=== PATIENT | female | born 1935 | race Caucasian/White ===

== ENCOUNTER → 2017-02-25 | Outpatient (CLI) | payer OTHER ==
[~2017-02-25] MED LIST: ASCORBIC ACID500 MG PO; ASPIRIN81 M1 PO; ASPIRIN81 M2 PO; ATIVAN PO; CALCIUM + D 6001 TA1 PO; CALCIUM 500 + D1 TAB PO; CELEXA PO; CERTAGEN PO; FIBERCON625 MG PO; FISH OIL 1,0001 CAP PO; FISH OIL 1,2001 EACH PO; FOSAMAX PO; IBUPROFEN PO; LEVOXYL88 MCG PO; LORAZEPAM0.5 MG PO; MULTIVITAMIN1 UDCAP PO; PERCOCET PO; PRAVACHOL PO; PRAVACHOL20 MG PO; PREMARIN VAG CR45 GM; PRILOSEC PO; PRILOSEC20 MG PO; ROBAXIN500 MG PO; SYNTHROID PO; TYLENOL ARTHRITIS; VICODIN 5/500 T1 TAB PO; VITAMIN C500 M2 PO
--- NOTE | ~2017-02-25 | MY26 ---
[facility] A Service of [facility] & [facility] RADIOLOGY TEXT RESULTS PATIENT: JUAN MIGUEL GUERIN LOCATION: [facility] : 39 UNIT #: [id number] AGE: [address]: Abraham Wagoner MD SEX: F ORDER DR: [id number] [facility]. [place], [place] [address] [id number] O MR#: [id number] Acc #: [id number] NAME: JUAN MIGUEL GUERIN : 1935 SEX: F STUDY DATE/TIME: 02/25/2017 10:48 UNIT: [facility] ROOM: STUDY DESCRIPTION: [facility] DIAGNOSTIC W/ CAD BILAT Attending Physician: Abraham Wagoner M.D. Referring Physician: Abraham Wagoner M.D. Ordering Physician: Abraham Wagoner M.D. Primary Care Physician: Cesario Munoz D.O. MEDICAL IMAGING REPORT This report is preliminary unless electronic signature is present EXAM Bilateral digital diagnostic mammogram with CAD, 02/25/2017 INDICATION 81-year-old female presenting for followup of probably benign calcifications in the left breast. No new problems. No personal history of breast cancer. Family history positive in the patient's grandmother at 69. No surgeries. TECHNIQUE CC and MLO views were obtained bilaterally. Additional spot magnification views were obtained on the left. COMPARISON Mammograms 08/08/2015, 06/20/2015, 05/24/2014. FINDINGS Breast parenchyma is composed of scattered fibroglandular densities. The pattern is unchanged. There is no new dominant nodule or mass in either breast. Benign-appearing calcifications are present. The probably benign calcifications in the central left breast once again demonstrate features most characteristic of benign calcifications. These have demonstrated slight interval benign progression characteristics. No new suspicious cluster of microcalcifications identified. Absent new or worsening symptoms in either breast, the patient should return for a screening mammogram in one year. Findings and recommendations were discussed with the patient. She voiced understanding and agreement. IMPRESSION The calcifications in the left breast are benign. Return to an annual screening regimen is recommended. See discussion above. Findings [facility] A Service of [facility] & [facility] RADIOLOGY TEXT RESULTS PATIENT: JUAN MIGUEL GUERIN LOCATION: [facility] : 37 UNIT #: [id number] AGE: [address]: Abraham Wagoner MD SEX: F ORDER DR: discussed with the patient here in the department. Patients over the age of 40 are entered into a reminder system with target due date for the next mammogram. A result letter will also be sent to the patient. BIRADS: 2 Benign Finding Dictated by... Quintin Salamanca M.D. THIS IS AN ELECTRONICALLY VERIFIED REPORT Quintin Salamanca M.D. at 02/25/2017 5:19 PM Jj TD: 02/25/2017 15:08 JOB #: [id number] MEDICAL IMAGING REPORT Page 1 of 1 COPY
== END | disposition home or self-care (01) ==
LOC: CMAM 10:00
DX: R92.1 Mammographic calcification found on diagnostic imaging of breast (principal)
CPT/HCPCS: G0204